=== PATIENT | female | born 1955 | race Hispanic/Latino ===

== ENCOUNTER 2017-02-26 15:47 | Outpatient (CLI) | payer BC ==
--- NOTE | 2017-02-26 16:30 | Mammography Report ---
BILATERAL DIGITAL SCREENING MAMMOGRAM with CAD: 02/26/17 15:47:00 CLINICAL: Routine screening.A previous left benign biopsy. COMPARISON:03/04/16 FINDINGS: There are scattered areas of fibroglandular density.Mild left upper outer surgical scar. No mass, suspicious architectural distortion or suspicious calcifications. IMPRESSION: No mammographic evidence of malignancy. BI-RADS CATEGORY: 2 -- Benign RECOMMENDATION: Routine mammographic screening in one year. COMMENT: Patient follow-up letters are generated by our [employer] application.
== END 2017-02-26 15:48 | disposition home or self-care (01) ==
LOC: SPVWC 15:47
PROVIDERS: ATTEND Obstetrics & Gynecology
DX: Z12.31 Encounter for screening mammogram for malignant neoplasm of breast (principal)
CPT/HCPCS: 77067; G0202

== ENCOUNTER 2019-03-23 15:37 | Outpatient (CLI) | payer BC ==
--- NOTE | 2019-03-24 16:19 | Mammography Report ---
DIGITAL SCREENING MAMMOGRAM WITH CAD, 03/23/2019 INDICATION: Routine screening mammography. Previous left benign surgical biopsy. TECHNIQUE: Digital bilateral 2D mammography was obtained in the craniocaudal and mediolateral obliq ue projections. This examination was interpreted with the benefit of Computer-Aided Detection analysi s. COMPARISON: 02/27/2018 FINDINGS: Breast Density: There are scattered areas of fibroglandular density. There is no evidence of dominant mass, suspicious calcifications or architectural distortion in eithe r breast. Mild left upper outer benign postsurgical scar. IMPRESSION: No mammographic evidence of malignancy. Follow up recommendation: Routine yearly BI-RADS Category 2: Benign. A "normal" or negative report should not discourage follow up or biopsy of a clinically significant f inding. A written summary of these findings will be mailed to the patient. The patient will be entered into a mammography reporting system which will generate a reminder letter for the patient's next appointmen t at the appropriate interval. The [employer] recommends yearly mammograms starting at age 40 and continuing as l leah as a woman is in good health. Breast MRI is recommended for women with an approximate 20-25% or greater lifetime risk of breast cancer, including women with a strong family history of breast or ova valarie cancer or who have been treated for Hodgkin's disease. Signer Name: Roman Chaney MD Signed: 03/24/2019 4:14 PM Workstation Name: [id number]
== END 2019-03-23 15:38 | disposition home or self-care (01) ==
LOC: SPVWC 15:37
PROVIDERS: ATTEND Obstetrics & Gynecology
DX: Z12.31 Encounter for screening mammogram for malignant neoplasm of breast (principal)
CPT/HCPCS: 77067

== ENCOUNTER 2020-03-24 10:15 | Outpatient (CLI) | payer BC ==
--- NOTE | 2020-03-24 11:48 | Mammography Report ---
DIGITAL SCREENING MAMMOGRAM WITH CAD, 03/24/2020 CLINICAL INFORMATION / INDICATION: Routine screening mammography. TECHNIQUE: Digital bilateral 2D mammography was obtained in the craniocaudal and mediolateral obliqu e projections. This examination was interpreted with the benefit of Computer-Aided Detection analysis . COMPARISON: 03/17/2019, 02/27/2018 FINDINGS: Breast Density: There are scattered areas of fibroglandular density. No dominant mass, suspicious calcifications, or architectural distortion in either breast. There is stable scarring of the upper outer left breast. IMPRESSION: No mammographic evidence of malignancy. Follow up recommendation: Routine yearly BI-RADS Category 2: Benign. A "normal" or negative report should not discourage follow up or biopsy of a clinically significant f inding. A written summary of these findings will be mailed to the patient. The patient will be entered into a mammography reporting system which will generate a reminder letter for the patient's next appointmen t at the appropriate interval. The [employer] recommends yearly mammograms starting at age 40 and continuing as l leah as a woman is in good health. Breast MRI is recommended for women with an approximate 20-25% or greater lifetime risk of breast cancer, including women with a strong family history of breast or ova valarie cancer or who have been treated for Hodgkin's disease. Signer Name: Teodoro Ritchie MD Signed: 03/24/2020 11:43 AM Workstation Name: [id number]
== END 2020-03-24 10:16 | disposition home or self-care (01) ==
LOC: SPVWC 10:15
PROVIDERS: ATTEND Obstetrics & Gynecology
DX: Z12.31 Encounter for screening mammogram for malignant neoplasm of breast (principal); N64.89 Other specified disorders of breast
CPT/HCPCS: 77067

== ENCOUNTER 2021-05-10 08:21 | Outpatient (CLI) | payer MEDICARE ==
--- NOTE | 2021-05-11 10:11 | Mammography Report ---
DIGITAL SCREENING MAMMOGRAM WITH CAD, 05/10/2021 CLINICAL INFORMATION / INDICATION: Routine screening mammography. TECHNIQUE: Digital bilateral 2D mammography was obtained in the craniocaudal and mediolateral obliqu e projections. This examination was interpreted with the benefit of Computer-Aided Detection analysis . COMPARISON: 03/24/2020, 03/23/2019, 02/27/2018 FINDINGS: Breast Density: There are scattered areas of fibroglandular density. Right breast: There is a new 5 mm nodular density with indistinct margins at the 10:00 position poste rior depth. Left breast: No dominant mass, suspicious calcifications, or architectural distortion in the left jose ast. IMPRESSION: 1. New right breast density with indistinct margins which will require additional evaluation with spo t compression views and right breast ultrasound. Follow up recommendation: Special View: Spot BI-RADS Category 0: INCOMPLETE. Needs additional imaging evaluation and/or prior mammograms for diogo rison. A "normal" or negative report should not discourage follow up or biopsy of a clinically significant f inding. A written summary of these findings will be mailed to the patient. The patient will be entered into a mammography reporting system which will generate a reminder letter for the patient's next appointmen t at the appropriate interval. The [employer] recommends yearly mammograms starting at age 40 and continuing as l leah as a woman is in good health. Breast MRI is recommended for women with an approximate 20-25% or greater lifetime risk of breast cancer, including women with a strong family history of breast or ova valarie cancer or who have been treated for Hodgkin's disease. Signer Name: Rahel Lawler MD Signed: 05/11/2021 10:06 AM Workstation Name: [id number]
== END 2021-05-10 08:22 | disposition home or self-care (01) ==
LOC: SPVWC 08:21
PROVIDERS: ATTEND Obstetrics & Gynecology
DX: Z12.31 Encounter for screening mammogram for malignant neoplasm of breast (principal); N64.89 Other specified disorders of breast
CPT/HCPCS: 77067

== ENCOUNTER 2021-05-17 11:17 | Outpatient (CLI) | payer MEDICARE ==
--- NOTE | 2021-05-17 13:52 | Mammography Report ---
DEXA BONE DENSITY SCAN INDICATION / CLINICAL INFORMATION: OSTEOPOROSIS/POSTMENOPAUSE. 66 years Female COMPARISON: 03/10/2018 LUMBAR SPINE, L1, L2, and L4: - Bone mineral density (BMD) = 0.848 g/cm2. - T-score = -1.7 - Z-score = 0.1 Change (%) since most recent prior (if available): None available. LEFT HIP, NECK : - Bone mineral density (BMD) = 0.631 g/cm2. - T-score = -2.0 - Z-score = -0.4 Change (%) since most recent prior (if available): 2.1% increase IMPRESSION: 1. WHO Classification: Osteopenia. Fracture Risk: Increased. Note: 10-Year Fracture Risk (FRAX) not reported. This DEXA unit lacks FRAX functionality. BMD Reporting Guidelines (ISCD, 2015) BMD Reporting in Postmenopausal Women and in Men Age 50 and Older - T-scores are preferred. - The WHO densitometric classification is applicable. BMD Reporting in Females Prior to Menopause and in Males Younger Than Age 50 - Z-scores, not T-scores, are preferred. This is particularly important in children. - A Z-score of -2.0 or lower is defined as below the expected range for age, and a Z-score above -2.0 is within the expected range for age. - Osteoporosis cannot be diagnosed in men under age 50 on the basis of BMD alone. - The WHO diagnostic criteria may be applied to women in the menopausal transition. http://www.iscd.org/official-positions/0829-hvwi-cofdrmuv-positions-adult/ Signer Name: Nate Reid MD Signed: 05/17/2021 1:47 PM Workstation Name: [id number]
== END 2021-05-17 11:18 | disposition home or self-care (01) ==
LOC: SPVWC 11:17
PROVIDERS: ATTEND Obstetrics & Gynecology
DX: M81.0 Age-related osteoporosis without current pathological fracture (principal); M85.88 Other specified disorders of bone density and structure, other site
CPT/HCPCS: 77080

== ENCOUNTER 2021-05-26 08:12 | Outpatient (CLI) | payer MEDICARE ==
--- NOTE | 2021-05-26 11:14 | Mammography Report ---
RIGHT DIGITAL DIAGNOSTIC MAMMOGRAM WITH CAD 05/26/2021 RIGHT LIMITED BREAST ULTRASOUND INDICATION: Abnormal screening mammogram. Screening recall of the right breast. TECHNIQUE: Digital right mammographic imaging was performed. Spot compression views were obtained. L imited ultrasound was performed. This examination was interpreted with the benefit of Computer-Aided Detection (CAD) analysis. COMPARISON: Screening mammogram, 05/10/2021 and 03/24/2020 FINDINGS: Breast Density: There are scattered areas of fibroglandular density. MAMMOGRAPHIC FINDINGS: Spot compression views confirm a 6 mm nodular density at the 10:00 position po sterior depth. ULTRASOUND FINDINGS: Targeted ultrasound evaluation was performed of the area of interest. Sonograp hic evaluation of the right breast at the 10:00 position 5 cm from the nipple demonstrates a hypoecho ic solid mass with indistinct margins measuring 0.7 x 0.6 cm. There is no associated internal vascula rity. This corresponds to the density seen on the mammogram. There is a 6 mm simple cyst at the 10:00 position 4 cm from the nipple. Additionally, there is a 4 mm hypoechoic nodule at the 10:00 position 4 cm from the nipple representing an incidental finding. IMPRESSION: 1. Solid right breast mass at the 10:00 position measuring 7 mm as described which is suspicious for malignancy. Surgical consultation and ultrasound-guided biopsy are recommended. 2. Adjacent 4 mm nodule also at the 10:00 position. This also is moderately suspicious for malignancy and may represent a small satellite lesion. Follow up recommendation: Biopsy BI-RADS Category 4: SUSPICIOUS FOR MALIGNANCY. A "normal" or negative report should not discourage follow up or biopsy of a clinically significant f inding. A written summary of these findings will be mailed to the patient. The patient will be entered into a mammography reporting system which will generate a reminder letter for the patient's next appointmen t at the appropriate interval. According to the [employer], yearly mammograms are recommended starting at age 40 and continuing as long as a woman is in good health. Breast MRI is recommended for women with an doug roximately 20-25% or greater lifetime risk of breast cancer, including women with a strong family his tory of breast or ovarian cancer and women who have been treated for Hodgkin's disease. Signer Name: Rahel Lawler MD Signed: 05/26/2021 11:10 AM Workstation Name: [id number]
== END 2021-05-26 08:13 | disposition home or self-care (01) ==
LOC: MAMMO 08:12
PROVIDERS: ATTEND Obstetrics & Gynecology
DX: N60.01 Solitary cyst of right breast (principal); N63.11 Unspecified lump in the right breast, upper outer quadrant

== ENCOUNTER 2021-06-13 10:04 | Outpatient (CLI) | payer MEDICARE ==
--- NOTE | 2021-06-13 14:15 | Mammography Report ---
ULTRASOUND GUIDED RIGHT BREAST BIOPSY, 06/13/2021 DIAGNOSTIC MAMMOGRAM, RIGHT CLINICAL INFORMATION / INDICATION: N63.10 UNSPECIFIED LUMP IN THE RIGHT BREAST. COMPARISON: Mammograms dated 05/10/2021 and 05/26/2021. Right breast ultrasound dated 05/26/2021. PROCEDURE: Risks, benefits, and indications to the procedure were discussed with the patient in detail, includin g bleeding, infection, hematoma formation, and inadequate tissue sampling. The patient agreed to proc eed with both verbal and written consent. A timeout procedure was performed with two patient identifi ers. The breast was prepped and draped in the usual sterile fashion. Lidocaine 1% without epinephrine were used for local anesthesia. Under direct ultrasound guidance, multiple core samples were obtained of the 8 mm right breast nodule. A biopsy marker was then placed. Biopsy device was removed and hemosta sis achieved with manual pressure. A sterile dressing was applied to the skin. The patient tolerated the procedure without difficulty. No complications were encountered. Two-view mammogram was obtained following the procedure demonstrating the U clip in good position at the biopsy site. Postbiopsy instructions were discussed with the patient and given in writing. Specimens were sent to pathology. IMPRESSION: 1. Technically successful ultrasound guided right breast biopsy. Signer Name: Porfirio Person Jr, MD Signed: 06/13/2021 2:11 PM Workstation Name: [id number]
== END 2021-06-13 10:05 | disposition home or self-care (01) ==
LOC: US 10:04
PROVIDERS: ATTEND Obstetrics & Gynecology
DX: N63.11 Unspecified lump in the right breast, upper outer quadrant (principal); D05.11 Intraductal carcinoma in situ of right breast; R92.8 Other abnormal and inconclusive findings on diagnostic imaging of breast; Z17.0 Estrogen receptor positive status [ER+]
CPT/HCPCS: 88305